=== PATIENT | male | born 1955 | race Caucasian/White ===

== ENCOUNTER 2019-08-01 13:05 | Outpatient (CLI) | payer OTHER | END 2019-08-01 13:06 | disposition home or self-care (01) | LOC: RT 13:05 | PROVIDERS: ATTEND Surgery | DX: Z01.810 Encounter for preprocedural cardiovascular examination (principal); K40.90 Unilateral inguinal hernia, without obstruction or gangrene, not specified as recurrent | CPT/HCPCS: 93005 ==

== ENCOUNTER 2019-08-07 11:10 | Day surgery (SDC) | payer OTHER ==
[2019-08-07] MEDS ORDERED: LACTATED RINGERS 1,000 ML IV ONE (11:13)
[2019-08-07] MEDS ORDERED: CEFAZOLIN SODIUM IN 0.9 % NACL 2 GM/100 ML BAG IV ONE (11:13)
--- NOTE | 2019-08-07 12:32 | ANESTHESIA ---
Pre-Anesthesia VS, & Labs - Diagnosis right inguinal hernia - Procedure right inguinal hernia repair Vital Signs: Temp Pulse Resp BP Pulse Ox 36.1 C L 76 16 141/85 H 97 08/07/19 11:17 08/07/19 11:17 08/07/19 11:17 08/07/19 11:17 08/07/19 11:17 Height 5 ft 7 in Weight (kg) 66 kg - NPO >8 hours Last Fluid Intake: H20 4oz at 0700 Home Medications and Allergies Aspirin [Aspir 81] 81 mg ORAL DAILY 08/03/15 Fexofenadine [Yvonne] 180 mg ORAL DAILY 08/03/15 Fluticasone [Flonase] 1 spray INH DAILY 08/03/15 Hydrochlorothiazide 25 mg ORAL DAILY 08/03/15 Allergies/Adverse Reactions: Allergies Allergy/AdvReac Type Severity Reaction Status Date / Time No Known Drug Allergies Allergy Verified 08/03/15 09:36 Anes History & Medical History - Anesthetic History Anesthesia Complications: reports: No previous complications - Medical History Cardiovascular: reports: Hypertension Pulmonary: reports: None Gastrointestinal: reports: GERD (poorly controlled, takes antacids) Urinary: reports: None Neuro: reports: None Musculoskeletal: reports: None Endocrine/Autoimmune: reports: None Blood Disorders: reports: None Skin: reports: None Smoking Status: Former smoker (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) Psychosocial: reports: Alcohol (Former alcoholic, 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.) - Surgical History General: Colonoscopy Orthopedic: Other Exam General: Alert, Oriented x3, Cooperative, No acute distress Dental: WNL, Other (chipped front tooth) Mouth Openin Fingerbreadth Neck Mobility: Normal Mallampati classification: II Thyromental Distance: 4-6 cm Respiratory: Lungs clear, Normal breath sounds, No respiratory distress, No accessory muscle use Cardiovascular: Regular rate, Normal S1, Normal S2, No murmurs Mental/Cognitive Status: Alert/Oriented X3, Normal for patient Plan Anesthesia Type: General Consent for Procedure(s) Verified and Reviewed: Yes Code Status: Attempt Resuscitation ASA classification: 2-Mild systemic disease Is this case an emergency?: No
[2019-08-07] MEDS ORDERED: ePHEDrine 50 MG/ML VIAL IVP ONE (13:50)
[2019-08-07] MEDS ORDERED: fentaNYL 100 MCG/2 ML VIAL IVP ONE (13:50)
[2019-08-07] MEDS ORDERED: PROPOFOL 200 MG/20 ML VIAL IVP ONE (13:50)
[2019-08-07] MEDS ORDERED: KETOROLAC 30 MG/ML VIAL IVP ONE (13:50)
[2019-08-07] MEDS ORDERED: LIDOCAINE-MPF 1% 30 ML VIAL ONE (13:50)
[2019-08-07] MEDS ORDERED: METOCLOPRAMIDE 10 MG/2 ML VIAL IVP ONE (13:50)
[2019-08-07] MEDS ORDERED: BUPIVACAINE 0.5%-EPI 1:200000 PF 10 ML VIAL ONE (13:50)
[2019-08-07] MEDS ORDERED: DEXAMETHASONE 4 MG/ML VIAL IVP ONE (13:50)
[2019-08-07] MEDS ORDERED: LIDOCAINE-MPF 2% 5 ML VIAL IM ONE (13:50)
[2019-08-07] MEDS ORDERED: MIDAZOLAM 2 MG/2 ML VIAL IVP ONE (13:50)
[2019-08-07] MEDS ORDERED: ONDANSETRON 4 MG/2 ML VIAL IVP ONE (13:50)
[2019-08-07] MEDS ORDERED: raNITIdine INJ 25 MG/ML VIAL IV ONE (13:50)
--- NOTE | 2019-08-07 14:38 | OPERATIVE REPORT ---
Operative Report - General Planned Procedure: Right inguinal hernia repair Pre-Op Diagnosis: Right inguinal hernia Procedure Performed: Right inguinal hernia repair Post Op Diagnosis: Right inguinal hernia - Procedure Note Primary Surgeon: Silas Anesthesia Provider: TREVOR Rosario Anesthesia Technique: General LMA, Local, Regional block Estimated Blood Loss (mL): 10 Findings: Moderate to large direct right inguinal hernia Complications: none apparent - Other Other Information/Narrative: After obtaining informed consent, the patient is brought to the operating room and placed in the supine position on the operating table. Following successful induction of general anesthesia, appropriate padding of all bony prominences, and placement of appropriate monitors, the right abdomen and groin were prepped and draped in the standard surgical fashion. A timeout was held per ALOAP protocol. All elements of the surgical safety checklist were observed before, during, and following the procedure. We began with an ileal inguinal nerve block on the rightt side. This was done by infiltrating a mixture of local anesthetics medial to the anterior superior iliac spine. We continued by selecting a site for an incision in the right ingu inal region. This was infiltrated with local anesthetic as well. The incision was created and carried down through the skin and subcutaneous tissue. Gabbie's fascia was divided revealing the external oblique aponeurosis. The aponeurosis was opened in the direction of its fibers and the leaflets reflected laterally. The spermatic cord and hernia sac were carefully identified. The defect was n oted to be of moderate to large size and direct in location. We elected to repair this large indirect defect using a large Prolene hernia system by layered mesh implant. This was dipped in Ancef solution and deployed into the indirect defect. The posterior leaflet was then straightened and flattened in the preperitoneal space. Care was taken to be sure it was not wadded up into a ball and carefully covered the inguinal canal. The anterior leaflet was then straightened and flattened. A kourtney was created medially for the spermatic cord. It was closed with a single Prolene stitch. The leaflet was then tacked to the pubic tubercle medially and then placed under the external oblique aponeurosis laterally. The wound was checked for hemostasis. The external oblique aponeurosis was then closed with a running Vicryl suture. Gabbie's fascia was reapproximated with a running Vicryl suture. Monocryl stitches were placed in the skin. All sponge, needle, and instrument counts were correct at the conclusion of the case. The patient was allowed to awaken from anesthesia without difficulty and taken to the postanesthesia care unit in good condition.
[2019-08-07] MEDS ORDERED: oxyCODONE 5 MG TABLET PO PRN (14:40)
[2019-08-07] MEDS ORDERED: HYDROmorphone 0.5 MG/0.5 ML SYRINGE IVP PRN (14:40)
[2019-08-07] MEDS ORDERED: ONDANSETRON 4 MG/2 ML VIAL IVP PRN (14:40)
[2019-08-07 16:06] VITALS: BP 117/75
== END 2019-08-07 11:11 | disposition home or self-care (01) ==
LOC: SDS 11:10
PROVIDERS: ATTEND Surgery
PROC: 0YU50JZ Supplement Right Inguinal Region with Synthetic Substitute, Open Approach (ICD-10-PCS; principal; 2019-08-07 12:45)
DX: K40.90 Unilateral inguinal hernia, without obstruction or gangrene, not specified as recurrent (principal); I10 Essential (primary) hypertension; Z87.891 Personal history of nicotine dependence
CPT/HCPCS: 49505; C1781; J0690; J2765; J7120

== ENCOUNTER 2023-04-05 18:33 | Outpatient (CLI) | payer OTHER | END 2023-04-05 23:59 | disposition short-term general hospital (02) | LOC: EMS 18:33 | DX: R46.4 Slowness and poor responsiveness (principal); R09.89 Other specified symptoms and signs involving the circulatory and respiratory systems; R19.5 Other fecal abnormalities; R11.12 Projectile vomiting; R53.83 Other fatigue; R53.81 Other malaise; R06.02 Shortness of breath | CPT/HCPCS: A0425; A0427 ==

== ENCOUNTER 2023-05-30 11:54 | Outpatient (CLI) | payer MEDICARE, OTHER ==
--- NOTE | 2023-05-30 16:11 | Ultrasound Report ---
PROCEDURE: Aorta Screening INDICATIONS: SCREENING FOR CARDIOVASCULAR DISORDERS TECHNIQUE: Real time scanning was performed of the aorta and iliac arteries, with image documentatio n. COMPARISON: None. FINDINGS: Aorta: Proximal aortic diameter measures 2.1 x 2.2 cm. Mid-aorta measures 2.0 x 2.0 cm. Distal aor tic diameter is 1.7 x 1.8 cm. Iliac arteries: Right common iliac artery measures 1.1 cm. Left common iliac artery measures 1.1 cm . IMPRESSION: Negative screening abdominal aortic ultrasound for aneurysm. Reviewed by: Sergio Schultz MD on 05/30/2023 4:10 PM PDT Approved by: Sergio Schultz MD on 05/30/2023 4:10 PM PDT Station ID: [id number]
== END 2023-05-30 11:55 | disposition home or self-care (01) ==
LOC: DI 11:54
PROVIDERS: ATTEND Internal Medicine
DX: Z13.6 Encounter for screening for cardiovascular disorders (principal)

== ENCOUNTER 2023-07-26 10:45 | Outpatient (CLI) | payer MEDICARE, OTHER ==
--- NOTE | 2023-07-26 10:58 | CARDIAC PROCEDURE NOTE ---
Stress Test Report Service Date: 07/26/23 Service Time: 11:00 Ordering Provider: Javier Srivastava MD Indication for Test: Assess for inducible ischemia in patient with recent troponin elevation in the setting of hospitalization for severe systemic illness (pneumonia with com plicating sepsis). Significant Medical History: Mejia is referred for an ETT for cardiac risk stratification, after he experienced troponinemia during an episode of pneumonia with sepsis, presumed to represent a type II non-STEMI. He has been generally healthy and active, before and now following, an 8-day hospitalization for the above issues in early March. He is very clear that he felt "great" within just a few days of hospital discharge and he has increased his physical exertion level back to his prior normal baseline without experiencing any chest pressure/discomfort/pain or other cardiovascular symptoms (e.g. dyspnea, palpitations, lightheadedness). Cardiac Risk Factors: Positive for hypertension (treated for 20+ years, with self-monitored BPs typically in the 130's/70's); he has a history of prior tobacco smoking but quit 29 yrs ago, so this is likely non-contributory; no known history of diabetes, hyperlipidemia or significant family ASCVD history. Procedure: -Exercise Treadmill Test- After signing informed consent, the patient performed treadmill exercise using a Pablo protocol. The patient exercised for 6 minutes 24 seconds and achieved a peak heart rate of 158 (103 percent predicted maximum heart rate for age), and an estimated workload of 7.6 METS. The test was terminated due to fatigue, especially in the legs. Resting heart rate: 90 Peak heart rate: 158 Normal response to exercise. Resting BP: 130/87 Peak BP: 216/83 Normal BP response to exercise. Rhythm during exercise: Sinus rhythm throughout, without ectopy. Symptoms: He denied experiencing any chest pressure/discomfort/pain. EKG at rest showed normal sinus rhythm, with voltage criteria for left atrial and left ventricular hypertrophy; resting ST segments were elevated in some leads, none were depressed. EKG at peak stress showed >1.[address] depression in leads II,III,aVF and V4-V6, meeting diagnostic EKG criteria for ischemia. In Recovery HR rapidly/normally returned towards resting level; BP decreased more slowly, remaining modestly elevated at 7:00 (149/76). No imaging was ordered with this stress test. Mark Lucas MD, was present throughout this treadmill stress study and supervised it in its entirety. Summary: 1) Exercise tolerance about average for age and sex as evidenced by ROMIE of -5%. 2) Abnormal resting EKG, though with "interpretable" ST segments. 3) Adequate level of exercise was achieved on this treadmill stress test. 4) Normal BP response to exercise. 5) ST depression meeting diagnostic EKG criteria was seen at peak stress. 6) No imaging was ordered with this test. Conclusions and Recommendations: 1) Clinically the information obtained (exercise time, hemodynamic response and lack of ischemic symptoms) seems reassuring, even though the EKG response was consistent with inducible ischemia. I suspect some of the latter may be due to his likely underlying LVH, resulting in a "strain pattern" response. 2) We discussed that he should continue with a moderate level of physical activity but that for full reassurance the ETT should be repeated with imaging (i.e. a stress echocardiogram in our lab).
== END 2023-07-26 10:46 | disposition home or self-care (01) ==
LOC: DI 10:45
PROVIDERS: ATTEND Internal Medicine
DX: I21.A1 Myocardial infarction type 2 (principal); I10 Essential (primary) hypertension; Z87.891 Personal history of nicotine dependence; R94.31 Abnormal electrocardiogram [ECG] [EKG]
CPT/HCPCS: 93017